=== PATIENT | female | born 1960 | race Caucasian/White ===

== ENCOUNTER 2017-11-12 09:30 | Emergency (ER) | payer BC ==
[2017-11-12 09:38] VITALS: BP 121/57
--- NOTE | 2017-11-12 11:23 | RAD ---
Indication: LEFT heel pain. Comparison: July 10, 2011 Technique: AP, mortise, and lateral views LEFT ankle. AP, lateral, and oblique views LEFT foot. Report: Negative for fracture or malalignment at the ankle or foot. No stress reaction evident. Suggestion of talocrural joint effusion. Small Achilles tendon insertion and plantar fascia origin bone spurs. Soft tissue swelling along the course of the noninsertional and insertional segments of the Achilles tendon. Mild osteophytosis without significant joint space narrowing at the first metatarsal phalangeal joint. IMPRESSION: #. New heel spurs and soft tissue swelling compared with the 2012 exam. Correlate clinically for potential acute Achilles tendinopathy and plantar fasciitis. If clinically indicated nonemergent ultrasound or MRI could be obtained for further assessment. #. Mild osteoarthritis at the first metatarsal phalangeal joint with interval worsening.
--- NOTE | 2017-11-12 12:04 | UC ---
Lower Extremity/Ankle HPI - HPI Summary HPI Summary: IN-ROOM NOTE: This patient is a 57 year old F presenting to [facility] with a chief complaint of an aching, burning, and sharp left ankle pain since 1 week ago. The patient rates the pain 6/10 in severity. Patient reports pain over Achilles tendon at insertion of the heel. Patient denies pain over the medial and lateral malleolus and over the 5th metatarsal. Patient last saw her PCP, Agustín Vora MD, about 1 month ago. NOTE: Vital signs stable. Afebrile. Visit history non-contributory to present complaint. NURSES NOTE: left ankle swelling started one week ago - History of Current Complaint Chief Complaint: UCLowerExtremity Stated Complaint: ANKLE INJURY Time Seen by Provider: 11/12/17 10:24 Hx Obtained From: Patient Onset/Duration: Lasting Days - 1 week ago, Still Present Severity Initially: Moderate Severity Currently: Moderate Pain Intensity: 6 Pain Scale Used: 0-10 Numeric - Allergies/Home Medications Allergies/Adverse Reactions: Allergies Allergy/AdvReac Type Severity Reaction Status Date / Time Penicillins Allergy unk Verified 11/12/17 09:39 PMH/Surg Hx/FS Hx/Imm Hx Endocrine History: Diabetes Cardiovascular History: Cardiac Disease - Denies - Surgical History Surgical History: Yes Surgery Procedure, Year, and Place: X3. WISDOM TEETH - Family History Known Family History: Positive: Diabetes - Social History Occupation: Employed Full-time Alcohol Use: None Substance Use Type: None Smoking Status (MU): Never Smoked Tobacco Have You Smoked in the Last Year: No Review of Systems Constitutional: Fever - Denies Musculoskeletal: Other: - Aching, burning, and sharp left ankle pain. Pain over Achilles tendon at insertion of the heel. Denies pain over the medial and lateral malleolus and over the 5th metatarsal. All Other Systems Reviewed And Are Negative: Yes - Comments Additional Review of Systems Comments: POSITIVE: ACHING, BURNING, AND SHARP LEFT ANKLE PAIN AND PAIN OVER ACHILLES TENDON AT INSERTION OF THE HEEL. NEGATIVE: PAIN OVER THE MEDIAL AND LATERAL MALLEOLUS AND OVER THE 5TH METATARSAL. FEVER. Physical Exam - Summary Physical Exam Summary: Appearance: The patient is well-appearing, is in no pain distress, and is well- nourished. Eyes: Conjunctiva are clear. ENT: The hearing is grossly normal, the pharynx is normal, and the TMs are normal. There is no muffled or hoarse voice. Neck: The neck is supple and there is no lymphadenopathy. Respiratory: The chest is nontender. The lungs are clear, there are normal breath sounds, and there is no respiratory distress. Cardiovascular: Heart is regular rate and rhythm. There is no murmur. Abdomen: The abdomen is soft and nontender. There is no organomegaly. Bowel sounds: present Musculoskeletal: Strength is intact. The patient moves all extremities. LEFT FOOT EXAMINATION: NO TENDERNESS OVER 5TH METATARSAL, NO TENDERNESS OVER MEDIAL AND LATERAL MALLEOLUS. TENDERNESS OVER THE INSERTION OF THE PLANTAR TENDON AT THE BOTTOM OF THE HEEL. TENDERNESS AT THE INSERTION OF THE ACHILLES TENDON OVER THE POSTERIOR ASPECT. THERE IS NO INSTABILITY OF THE KNEE. THE RIGHT FOOT IS NORMAL. Neurological: The patient is alert. Motor and sensory examination grossly intact. Psychological: The patient displays age appropriate behavior Skin: Negative for rashes. Triage Information Reviewed: Yes Vital Signs: Initial Vital Signs Temp 98.1 F 11/12/17 09:35 Pulse 85 11/12/17 09:35 Resp 16 11/12/17 09:35 BP 121/57 11/12/17 09:35 Pulse Ox 100 11/12/17 09:35 Vital Signs Reviewed: Yes Diagnostics - Radiology Left Ankle X-Ray Radiology Interpretation Completed By: Radiologist - 11:20.#. New heel spurs and soft tissue swelling compared with the 2012 exam. Correlate clinically for potential acute Achilles tendinopathy and plantar fasciitis. If clinically indicated nonemergent ultrasound or MRI could be obtained for further assessment. #. Mild osteoarthritis at the first metatarsal phalangeal joint with interval worsening. Physician has reviewed this imaging report. Left Foot X-Ray Radiology Interpretation Completed By: Radiologist - 11:20. #. New heel spurs and soft tissue swelling compared with the 2012 exam. Correlate clinically for potential acute Achilles tendinopathy and plantar fasciitis. If clinically indicated nonemergent ultrasound or MRI could be obtained for further assessment. #. Mild osteoarthritis at the first metatarsal phalangeal joint with interval worsening.[facility] physician has revieweed this porgn. Lower Extremity Course/Dx - Course Course Of Treatment: 57 y/o active female complaining of pain over her L Achilles and bottom of her foot. X-rays suggest Achilles tendonitis and tendon fasciitis. Patient was given a walking boot and crutches and advised to begin physical therapy as well as restrict her activities until she feels better. Apply warmth at the beginning of the day and apply ice to the area during the day. - Differential Dx/Diagnosis Differential Diagnosis/HQI/PQRI: Tendonitis Provider Diagnoses: Plantar fasciitis and achilles tendinitis. Discharge - Sign-Out/Discharge Documenting (check all that apply): Patient Departure - D/C All imaging exams completed and their final reports reviewed: Yes - Discharge Plan Condition: Stable Disposition: HOME Patient Education Materials: Plantar Fasciitis (ED), Achilles Tendinitis (ED) Referrals: Agustín Vora MD [Primary Care Provider] - Additional Instructions: WE DISCUSSED: You have inflammation of your Achilles tendon and irritation of the tendons at the bottom of your foot. Rest, anti-inflammatory medication or acetaminophen, crutches to be non weight bearing if it hurts to walk, splint, physical therapy. Re check at any time for increased pain or disability. Your x ray showed NO broken bones. - Attestation Statements Document Initiated by Scribe: Yes Documenting Scribe: Axel Arnold Provider For Whom Scribe is Documenting (Include Credential): Ryan Cotton MD Scribe Attestation: Axel Drummond, scribed for Ryan Cotton MD on 11/12/17 at 1356.
== END 2017-11-12 12:30 | disposition home or self-care (01) ==
LOC: UCEAST 09:30
DX: M72.2 Plantar fascial fibromatosis (principal); M76.62 Achilles tendinitis, left leg
CPT/HCPCS: 99212; G0463